=== PATIENT | male | born 1975 | race Caucasian/White ===

== ENCOUNTER → 2018-01-13 | Outpatient (CLI) | payer OTHER ==
[~2018-01-13] VITALS: Ht 177.8 cm; Wt 132.0 kg
[~2018-01-13] MED LIST: EPIVIR300 MG PO; GLYBURIDE5 MG PO; ISONIAZID PO; LOPRESSOR25 MG PO; METFORMIN HCL500 MG PO; NAPROXEN500 MG PO; NITROSTAT0.4 MG SL; PERCOCET 5/31 TABLET PO; PLAVIX75 MG PO; PREZCOBIX 8001 EACH PO; PROTONIX40 MG PO; ST. JOSEPH ASPI81 MG PO; TIVICAY50 MG PO; VENTOLIN HFA18 GM IH; VITAMIN B-625 MG PO
[2018-01-13 13:32] VITALS: BP 147/86
== END | disposition home or self-care (01) ==
LOC: IVINF 13:00
DX: R76.8 Other specified abnormal immunological findings in serum (principal); Z88.0 Allergy status to penicillin
CPT/HCPCS: 96372; J0561